=== PATIENT | female | born 1955 | race African-American/Black ===

== ENCOUNTER 2020-12-01 11:22 | Emergency (ER) | payer MEDICARE, OTHER ==
[~2020-12-01 11:22] MED LIST: ALDACTONE 25MG25 MG PO; B-100 COMPLEX100 MG PO; CALCIUM500 MG PO; CILOSTAZOL50 MG PO; CIPRO500 MG PO; CONSTULOSE10 GM/15 M PO; DICYCLOMINE HCL10 MG PO; FOLIC ACID0.8 MG PO; MAGNESIUM400 MG PO; MEGACE TAB 40 M40 MG PO; MELATONIN5 MG PO; POTASSIUM CHLO10 MEQ PO; PROAIR DIGIHAL90 MCG INH; PROTONIX40 MG PO
== END 2020-12-01 14:50 | disposition left against medical advice (07) ==
LOC: ER1 11:22
DX: Z53.21 Procedure and treatment not carried out due to patient leaving prior to being seen by health care provider (principal)